=== PATIENT | male | born 1935 | race Caucasian/White ===

== ENCOUNTER 2018-08-22 12:01 | Emergency (ER) | payer OTHER ==
[~2018-08-22] VITALS: Ht 167.6 cm; Wt 59.0 kg
--- NOTE | 2018-08-22 12:01 | NUR ---
Patient to ER bed 01 to gown for evaluation. Side rails up.
--- NOTE | 2018-08-22 12:05 | NUR ---
patient arrived from [facility] via BLS with c/o ALOC after taking ativan. patient has no signs of distress at this time. patient does not respond to verbal commands. patients eyes are equal and slow to reaction bilaterally. patient has no reflex. patients eyes open upon head elevation. no other complaint or injury at this time.
--- NOTE | 2018-08-22 12:05 | NUR ---
ER Dr. Paredes at bedside examining patient.
[2018-08-22] MEDS ORDERED: TAMS-11 PO (12:45)
[2018-08-22] MEDS ORDERED: POLY119P15 PO (12:45)
[2018-08-22] MEDS ORDERED: FLEETMO RC (12:45)
[2018-08-22] MEDS ORDERED: PRO40 PO (12:45)
[2018-08-22] MEDS ORDERED: LACT10SO7 PO (12:45)
[2018-08-22] MEDS ORDERED: ACET325T53 PO (12:45)
[2018-08-22] MEDS ORDERED: ATOR40TA68 PO (12:45)
[2018-08-22] MEDS ORDERED: LITH150C PO (12:45)
[2018-08-22] MEDS ORDERED: LACT1TAB6 PO (12:45)
[2018-08-22] MEDS ORDERED: BISA-79 RC (12:45)
[2018-08-22] MEDS ORDERED: CIPR-172 PO (12:45)
[2018-08-22] MEDS ORDERED: LOSA50TA3 PO (12:45)
[2018-08-22] MEDS ORDERED: APIX5TAB4 PO (12:45)
[2018-08-22] MEDS ORDERED: TEMA15CA5 PO (12:45)
[2018-08-22] MEDS ORDERED: ARIP2TAB3 PO (12:45)
[2018-08-22] MEDS ORDERED: DIPH25CA83 PO (12:45)
[2018-08-22] MEDS ORDERED: FER300L PO (12:45)
[2018-08-22] MEDS ORDERED: IPRA3AMP9 INH (12:45)
[2018-08-22] MEDS ORDERED: CYAN100010 PO (12:45)
[2018-08-22] MEDS ORDERED: DOCU-144 PO (12:45)
[2018-08-22] MEDS ORDERED: LORA-258 PO (12:45)
[2018-08-22] MEDS ORDERED: SENN8.6T19 PO (12:45)
[2018-08-22] MEDS ORDERED: TRAZ-218 PO (12:45)
[2018-08-22] MEDS ORDERED: ONDA4TAB5 PO (12:45)
[2018-08-22] MEDS ORDERED: CEL20 PO (12:45)
[2018-08-22] MEDS ORDERED: MOM PO (12:45)
[2018-08-22] MEDS ORDERED: MULT-1089 PO (12:45)
[2018-08-22 12:46] LABS: BASOPHILS # (AUTO) 0.1 K/uL (0.0-0.2); BASOPHILS % (AUTO) 0.8 % (0.0-2.0); EOSINOPHILS # (AUTO) 0.3 K/uL (0.0-0.4); EOSINOPHILS % (AUTO) 3.8 % (0.0-4.0); HEMATOCRIT 31.9 % (36-54); HEMOGLOBIN 10.3 g/dL (14.0-18.0); LYMPHOCYTES # (AUTO) 0.8 K/uL (1.0-5.5); MEAN CORPUSCULAR HEMOGLOBIN 29 pg (27-31); MEAN CORPUSCULAR HGB CONC 32 % (32-36); MEAN CORPUSCULAR VOLUME 89 fL (79.0-98.0); MONOCYTES # (AUTO) 0.4 K/uL (0.0-1.0); MONOCYTES % (AUTO) 5.1 % (1.7-9.3); NEUTROPHILS % (AUTO) 81.3 % (40.0-70.0); PLATELET COUNT (AUTO) 311 K/uL (130-430); RED BLOOD CELL COUNT(AUTO) 3.58 MIL/uL (4.2-6.2); RED CELL DISTRIBUTION WIDTH 14.8 % (9.0-15.0); WHITE BLOOD COUNT (AUTO) 8.7 K/uL (4.8-10.8)
[2018-08-22 12:59] LABS: CHLORIDE 104 mmol/L (98-107); POTASSIUM 4.4 mmol/L (3.5-5.1); SODIUM SERUM 140 mmol/L (136-145)
[2018-08-22 13:00] LABS: ANION GAP 9 (5-15); CALCIUM 9.2 mg/dL (8.4-11.0); CREATININE 1.86 mg/dL (0.55-1.30); GLUCOSE 121 mg/dL (70-99); UREA NITROGEN, BLOOD 24 mg/dL (8-21)
[2018-08-22 13:01] LABS: PROTHROMBIN TIME 10.6 SECS (9.5-12.5)
[2018-08-22 13:03] LABS: TOTAL BILIRUBIN 0.2 mg/dL (0.0-1.0)
[2018-08-22 13:04] LABS: ALANINE AMINOTRANSFERASE 26 U/L (12-78); ALBUMIN 2.8 g/dL (3.4-4.8); ALCOHOL, BLOOD < 3 mg/dL (<10); ASPARTATE AMINOTRANSFERASE 25 U/L (10-37)
--- NOTE | 2018-08-22 14:03 | NUR ---
called [facility] for report.
--- NOTE | 2018-08-22 14:04 | NUR ---
notified MD regarding low urine output. new orders received.
--- NOTE | 2018-08-22 14:06 | NUR ---
spoke to Judith, nursing staff, from [facility]. patients baseline is AOx1 with the inability to carry on a conversation. patient does not ambulate at the center. provided ETA on return. no questions asked.
[2018-08-22 14:12] LABS: BILIRUBIN,URINE NEGATIVE (NEGATIVE); BLOOD, URINE 3+ (NEGATIVE); CLARITY/URINE CLOUDY (CLEAR); COLOR,URINE RED (YELLOW); GLUCOSE,URINE NEGATIVE (NEGATIVE); KETONES,URINE NEGATIVE (NEGATIVE); LEUKOCYTE ESTERASE ,URINE TRACE (NEGATIVE); NITRITE, URINE NEGATIVE (NEGATIVE); PH,URINE 6.5 (5.0-8.0); PROTEIN URINE TRACE (NEGATIVE); UROBILINOGEN,URINE 0.2 (0.2-1.0)
[2018-08-22 14:16] LABS: BACTERIA,URINE FEW /HPF (None Seen); RBC,URINE >100 /HPF (0-3)
[2018-08-22 14:21] LABS: BARBITURATE, URINE NEGATIVE (NEG <=200); BENZODIAZEPINE, URINE POSITIVE (NEG <=150); CANNABINOID, URINE NEGATIVE (NEG <=50); COCAINE, URINE NEGATIVE (NEG <=150); METHAMPHETAMINES SCREEN,URINE NEGATIVE (NEG <=500); OPIATE, URINE NEGATIVE (NEG <=100); PHENCYCLIDINE SCREEN,URINE NEGATIVE (NEG <=25); UR TRICYCLIC ANTIDEPRESSANTS NEGATIVE (NEG <=300); URINE AMPHETAMINE NEGATIVE (NEG <=500); URINE METHADONE NEGATIVE (NEG <=200); URINE OXYCODONE SCREEN NEGATIVE (NEG <=100); URINE PROPOXYPHENE SCREEN NEGATIVE (NEG <=300)
[2018-08-22] MEDS ORDERED: cefTRIAXone 1 GM IVPB PREMIX 50 ML IV ONE (14:45)
--- NOTE | 2018-08-22 14:53 | NUR ---
Patient to be transferred back to [facility]. Is being transferred due to current residental living. Receiving facility has accepting physician and available space. ER physician has signed transfer form. Patient or responsible green party has agreed to transfer and signed form. Patient belongings inventoried and will be sent with patient. Copy of nursing notes, lab reports, EKG, Physicians Orders and X-rays to be sent with patient. Report called to Judith at receiving facility. [facility] has been called for transfer. ETA is Ambulance is here now.
[2018-08-22 14:55] VITALS: BP_SYST 107
== END 2018-08-22 14:55 | disposition home or self-care (01) ==
LOC: SED 12:01
DX: R41.82 Altered mental status, unspecified (principal); D53.9 Nutritional anemia, unspecified; G30.9 Alzheimer's disease, unspecified; G20 Parkinson's disease; F31.9 Bipolar disorder, unspecified; Z86.73 Personal history of transient ischemic attack (TIA), and cerebral infarction without residual deficits; Z88.8 Allergy status to other drugs, medicaments and biological substances; Z79.899 Other long term (current) drug therapy
CPT/HCPCS: 36415; 70450; 71045; 80053; 80178; 80307; 81000; 82962; 83605; 84484; 85025; 85610; 85730; 87086; 96365; 99284; G0482; J0696; 93005